=== PATIENT | male | born 1955 | race Caucasian/White ===

== ENCOUNTER 2018-11-06 22:17 | Emergency (ER) | payer OTHER ==
[2018-11-06] MEDS ORDERED: diphenhydrAMINE 25 MG Cap PO ONE (23:38)
--- NOTE | 2018-11-06 23:41 | EDM.PDOC ---
ED HPI GENERAL MEDICAL PROBLEM - General Chief Complaint: ENT Problem Stated Complaint: RIGHT EYELID SWOLLEN Time Seen by Provider: 11/06/18 23:35 Source of Information: Reports: Patient, Family, RN Notes Reviewed History Limitations: Reports: No Limitations - History of Present Illness INITIAL COMMENTS - FREE TEXT/NARRATIVE: 63-year-old gentleman presents emergency department today complaint of swollen right eye, he was out fishing may have been exposed to horsefly which he does have an allergic response to developed edema in his eye as well as his surrounding eyelid. He has no trouble with his vision no shortness of breath - Related Data Allergies Allergy/AdvReac Type Severity Reaction Status Date / Time No Known Allergies Allergy Verified 11/06/18 23:13 Home Meds: Home Meds *Fish Oil 1 tab PO DAILY 11/06/18 [History] Aspirin [Adult Low Dose Aspirin EC] 81 mg PO DAILY 11/06/18 [History] Cholecalciferol (Vitamin D3) [Vitamin D3] 1,000 unit PO DAILY 11/06/18 [History] Citalopram Hydrobromide [Celexa] 10 mg PO BEDTIME 11/06/18 [History] Travoprost [Travatan Z] 1 drop EYEBOTH BEDTIME 11/06/18 [History] atorvaSTATin [Lipitor] 40 mg PO BEDTIME 11/06/18 [History] Past Medical History HEENT History: Reports: Glaucoma, Impaired Vision Cardiovascular History: Reports: CAD, High Cholesterol Respiratory History: Reports: Sleep Apnea Neurological History: Reports: Concussion Psychiatric History: Reports: Anxiety - Infectious Disease History Infectious Disease History: Reports: Chicken Pox, Measles, Mumps - Past Surgical History Cardiovascular Surgical History: Reports: Coronary Artery Bypass Social & Family History - Tobacco Use Smoking Status *Q: Never Smoker - Caffeine Use Caffeine Use: Reports: None - Recreational Drug Use Recreational Drug Use: No ED ROS GENERAL - Review of Systems Review Of Systems: See Below Constitutional: Reports: No Symptoms HEENT: Reports: Eye Discharge. Denies: Eye Pain, Vision Change Respiratory: Reports: No Symptoms Cardiovascular: Reports: No Symptoms ED EXAM GENERAL W FULL EYE - Physical Exam Exam: See Below Exam Limited By: No Limitations General Appearance: Alert, WD/WN, No Apparent Distress Eye Exam: Right Eye: Conjunctival Injection, Periorbital Changes, Left Eye: Normal Inspection, Bilateral Eye: EOMI, PERRL Visual Acuity (R) 20/: 20 Visual Acuity (L) 20/: 20 With Correction: No Eyelids: Right: Edema, Erythema, Lid Everted for Exam, Left: Normal Appearance Conjunctiva & Sclera: Right: Conjunctival Edema Cornea Exam: Right: Normal Appearance Extraocular Movements: Bilateral: Intact Pupils: Normal Accommodation Pupillary Size: Bilateral: 4 mm Pupillary Reaction: Bilateral: Brisk Respiratory/Chest: No Respiratory Distress, Lungs Clear Cardiovascular: Regular Rate, Rhythm, No Murmur Course - Vital Signs Last Recorded V/S: Last Vital Signs Temp 96.5 F 11/06/18 23:17 Pulse 61 11/06/18 23:17 Resp 16 11/06/18 23:17 BP 126/78 11/06/18 23:17 Pulse Ox 94 L 11/06/18 23:17 - Orders/Labs/Meds Meds: Medications Discontinued Medications Generic Name Dose Route Start Last Admin Trade Name Freq PRN Reason Stop Dose Admin Diphenhydramine HCl 50 mg 11/06/18 23:38 11/07/18 00:01 Benadryl PO 11/06/18 23:39 50 mg ONETIME ONE Administration Departure - Departure Time of Disposition: 00:16 Disposition: Home, Self-Care 01 Condition: Fair Clinical Impression: Allergic reaction to insect bite - Discharge Information Instructions: Allergies, Adult, [id number] Referrals: PCP,None [Primary Care Provider] - Forms: ED Department Discharge Additional Instructions: Continue to use Benadryl as needed as well as ice compression to the area, Please followup with your primary care provider in 3-5 days if not better, please call return to the emergency department with worsening of symptoms. - Assessment/Plan Plan: Assessment Acuity = acute Site and laterality = allergic reaction insect bite Etiology =probable horsefly Manifestations =periorbital edema with conjunctival edema Location of injury = Home Lab values =none Plan Good improvement with Benadryl provided in the ED plan to use Benadryl at home as needed as well as ice, follow-up primary care 3-5 days if not better This note was dictated using [employer] voice recognition software please call with any questions on syntax or grammar.
== END 2018-11-07 00:22 | disposition home or self-care (01) ==
LOC: JP.ED 22:17
DX: S00.261A Insect bite (nonvenomous) of right eyelid and periocular area, initial encounter (principal); I25.10 Atherosclerotic heart disease of native coronary artery without angina pectoris; E78.00 Pure hypercholesterolemia, unspecified; F41.9 Anxiety disorder, unspecified; Z79.82 Long term (current) use of aspirin; Z79.899 Other long term (current) drug therapy; W57.XXXA Bitten or stung by nonvenomous insect and other nonvenomous arthropods, initial encounter
CPT/HCPCS: 99282; A9270

== ENCOUNTER 2024-10-22 07:35 | Day surgery (SDC) | payer MEDICARE, OTHER ==
[2024-10-22] MEDS: Lactated Ringers 1,000 ML IV SCH (08:22)
[2024-10-22] MEDS ORDERED: Propofol 200 MG/20 ML SDV ONE (09:17)
[2024-10-22] MEDS ORDERED: Midazolam 1 MG/ML 2 ML SDV ONE (09:17)
[2024-10-22] MEDS ORDERED: fentaNYL 100 MCG/2 ML SDV ONE (09:17)
== END 2024-10-22 11:25 | disposition home or self-care (01) ==
LOC: JP.SDS 07:35
PROVIDERS: ATTEND Surgery
DX: Z12.11 Encounter for screening for malignant neoplasm of colon (principal); D12.2 Benign neoplasm of ascending colon; Z91.09 Other allergy status, other than to drugs and biological substances
CPT/HCPCS: 00811; 45380; 88305; J2250; J2704; J3010; J7120